=== PATIENT | female | born 1985 | race African-American/Black ===

== ENCOUNTER 2024-11-01 10:27 | Emergency (ER) | payer OTHER, SELFPAY ==
[2024-11-01 10:32] VITALS: BP 100/56; BP 96/58; PULSE 83; PULSE 86; RESP 16; TEMP 36.7; O2SAT 98; O2SAT 99; BMI 36.4
[2024-11-01 10:42] VITALS: O2SAT 99
--- NOTE | 2024-11-01 10:58 | ECG_ITS ---
Test Reason : SYNCOPE Blood Pressure : */* mmHG Vent. Rate : 73 BPM Atrial Rate : 73 BPM P-R Int : 162 ms QRS Dur : 80 ms QT Int : 376 ms P-R-T Axes : 58 22 22 degrees QTcB Int : 414 ms Normal sinus rhythm Normal ECG No previous ECGs available Referred By: Kierra Garces Electronically Signed By: ISRA JORGE
--- OUTSIDE RECORDS SUMMARY | 2024-11-01 11:06 | XMS_ITS | Continuity of Care Document ---
Author Name [facility] Organization [facility] Care Team Providers Care Supervisor Filter Assembly Name Role Phone [facility] Unavailable Unavailable Problems Combined list of problems from Department of [facility] and [facility] facilities. It does not include entries that were removed or entered in error. Problem Status Onset Date Problem Type Date of Resolution Comments Source No Known Problems Active Condition 0105A-[facility] Jerica-Wesley son Medications Combined list of outpatient medications from Department of [facility] and [facility] facilities.Medications provided include 1) outpatient medications from the last 15 months, and 2) patient-reported medications. 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 FITTER, Pharmacy : [facility] Oral (given by mouth) Complet ed 03/21/2024 4 2023 30.0 0105A-A [facility] Chericrie f-Wesleys on ibuprofen 800 mg oral tablet 1 tab(s), Oral, every 8 hr, with food or milk not to exceed 3200 mg/day, # 30 tab(s), 1 total refill(s ), Acute, 12/20/23 11:00:00 PM CDT, Pharmacy : [facility] Oral (given by mouth) Complet ed 12/21/2023 4 2023 30.0 0105A-A VICKY Montes De Ocae lachelle-Wesleys on loratadine 10 mg oral tablet 1 tab(s), Oral, Daily, PRN allergy symptoms , # 90 tab(s), 3 total refill(s ), Melina fajardo, Pharmacy : [facility] Oral (given by mouth) Ordered 09/26/2024 4 2023 90.0 0105A-A VICKY larose-Wesleys on Tylenol 325 mg oral tablet 1 tab(s), Oral, every 4 hr, PRN pain or fever, # 30 tab(s), 1 total refill(s ), Acute, 12/20/23 11:00:00 PM CDT, Pharmacy : [facility] Oral (given by mouth) Complet ed 12/21/2023 4 2023 30.0 0105A-A VICKY larose-Wesleys on Immunizations Combined list of available immunizations from the Department of Defense and Veterans Affairs facilities. Immunization Series Date Given Administered By Site Reaction Lot Number CVX Code Drug Absence Management Consultant Status Comments Source tetanus, diphtheria, acellular pertu is 2023 SAUNDRA Choi bryn, right (delt oid) [id number] GlaxoSmithKli ne complet ed tetanus, diphtheri a, acellular pertussis 08/09/23 Given 0105A-A VICKY larose-Wesleys on poliovirus vaccine, inactivated 2023 SAUNDRA Choi bryn, right (delt oid) [id number] sanofi pasteur complet ed polioviru s vaccine, inactivat ed 08/09/23 Given 0105A-A [facility] Twila f-Jacks on meningococcal conjugate vaccine 2023 SAUNDRA Choi bryn, left (delt oid) [id number] GlaxoSmithKli ne complet ed meningoco ccal conjugate vaccine 08/09/23 Given 0105A-A [facility] Twila larose-Jacks on measles/mumps /rubella virus vaccine 2023 SAUNDRA Rogers Arm [id number] GlaxoSmithKli ne complet ed measles/m umps/rube lla virus vaccine 08/09/23 Given 0105A-A [facility] Moncrie f-Jacks on adenovirus vaccine, live 2023 SAUNDRA [id number] Notcha [employer] [facility] complet ed adenoviru s vaccine, live 08/09/23 Given 0105A-A [facility] Moncrie f-Jacks on Results Combined list of recent chemistry, hematology and other laboratory results from Department of Defense and [facility], ranging from 15 months to all on record, depending upon the facility. Order Name Results Value Reference Range Date Interpretation Specimen Comments Source Molecular Infectiou s Disease Reason for Test? Screenin g *NA* (09/27/23 6:43 AM) 09/26 0105A-A [facility] Moncrie f-Jacks on Molecular Infectiou s Disease SARS-CoV-2 ANTIGEN Negative *NA* (09/27/23 6:43 AM) 09/26 0105A-A [facility] Moncrie f-Jacks on Molecular Infectiou s Disease Reason for Test? Screenin g *NA* (09/27/23 6:40 AM) 09/26 0105A-A [facility] Moncrie f-Jacks on Molecular Infectiou s Disease SARS-CoV-2 ANTIGEN Negative *NA* (09/27/23 6:40 AM) 09/26 0105A-A [facility] Moncrie f-Jacks on Infectiou s Disease Strep A, Rapid negative 09/08 0105A-A [facility] Moncrie f-Jacks on Chemistry CK Total 180 U/L 20 - 184 09/08 N 0105A-A [facility] Moncrie f-Jacks on Chemistry CO2 29 mmol/L 18 - 33 09/08 N 0105A-A [facility] Moncrie f-Jacks on Chemistry Glucose Lvl 92 mg/dL 70 - 100 09/08 N 0105A-A [facility] Moncrie f-Jacks on Chemistry Potassium Lvl 4.0 mmol/L 3.5 - 5.4 09/08 N 0105A-A [facility] Moncrie f-Jacks on Chemistry Chloride 104.0 mmol/L 98.0 - 108.0 09/08 N 0105A-A [facility] Moncrie f-Jacks on Chemistry Sodium 137.0 mmol/L 135.0 - 145.0 09/08 N 0105A-A [facility] Moncrie f-Jacks on Chemistry Creatinine Level 0.9 mg/dL 0.6 - 1.2 09/08 N 0105A-A [facility] Moncrie f-Jacks on Chemistry BUN 10 mg/dL 4 - 22 09/08 N 0105A-A [facility] Moncrie f-Jacks on Urinalysi s UA Blood Negative (09/09/23 7:13 AM) 09/08 N 0105A-A [facility] Moncrie f-Jacks on Urinalysi s UA Bili Negative 09/08 0105A-A [facility] Moncrie f-Jacks on Urinalysi s UA Clarity Clear *NA* (09/09/23 7:13 AM) 09/08 0105A-A [facility] Moncrie f-Jacks on Urinalysi s UA Micro Ind? Not Indicate d (09/09/23 7:13 AM) 09/08 N 0105A-A [facility] Moncrie f-Jacks on Urinalysi s UA Leuk Esterase Negative 09/08 0105A-A [facility] Moncrie f-Jacks on Urinalysi s UA pH 7.0 pH 09/08 N 0105A-A [facility] Moncrie f-Jacks on Urinalysi s UA Nitrite Negative (09/09/23 7:13 AM) 09/08 N 0105A-A [facility] Moncrie f-Jacks on Urinalysi s UA Glucose Negative 09/08 0105A-A [facility] Moncrie f-Jacks on Urinalysi s UA Color Light yellow 09/08 0105A-A [facility] Moncrie f-Jacks on Urinalysi s UA Ketones Negative 09/08 0105A-A [facility] Moncrie f-Jacks on Urinalysi s UA Urobilinoge n 0.2 (09/09/23 7:13 AM) 09/08 N 0105A-A [facility] Moncrie f-Jacks on Urinalysi s UA Spec [place] 1.010 (09/09/23 7:13 AM) 09/08 N 0105A-A [facility] Moncrie f-Jacks on Urinalysi s UA Protein Negative 09/08 0105A-A [facility] Moncrie f-Jacks on Chemistry Creatinine Level 0.9 mg/dL 0.6 - 1.2 09/08 N 0105A-A [facility] Moncrie f-Jacks on Chemistry Globulin 3.4 g/dL 2.8 - 3.1 09/08 H 0105A-A [facility] Moncrie f-Jacks on Chemistry BUN/Creat Ratio 11 09/08 0105A-A [facility] Moncrie f-Jacks on Chemistry A/G Ratio 1.1 0.9 - 1.8 09/08 N 0105A-A [facility] Moncrie f-Jacks on Chemistry Protein Total 7.1 g/dL 6.4 - 8.1 09/08 N 0105A-A [facility] Moncrie f-Jacks on Chemistry AGAP 8 mmol/L 4 - 12 09/08 N 0105A-A [facility] Moncrie f-Jacks on Chemistry Potassium Lvl 4.0 mmol/L 3.5 - 5.4 09/08 N 0105A-A [facility] Moncrie f-Jacks on Chemistry Sodium 137.0 mmol/L 135.0 - 145.0 09/08 N 0105A-A HC Moncrie f-Jacks on Chemistry CO2 29 mmol/L 18 - 33 09/08 N 0105A-A [facility] Moncrie f-Jacks on Chemistry Glucose Lvl 92 mg/dL 70 - 100 09/08 N 0105A-A [facility] Moncrie f-Jacks on Chemistry ALT 25 U/L 10 - 47 09/08 N 0105A-A [facility] Moncrie f-Jacks on Chemistry AST 22 U/L 11 - 38 09/08 N 0105A-A [facility] Moncrie f-Jacks on Chemistry Albumin 3.7 g/dL 3.3 - 5.5 09/08 N 0105A-A [facility] Moncrie f-Jacks on Chemistry Alk Phos 70 U/L 42 - 141 09/08 N 0105A-A [facility] Moncrie f-Jacks on Chemistry Bilirubin Total 1.1 mg/dL 0.2 - 1.6 09/08 N 0105A-A VICKY Butcher on Chemistry BUN 10 mg/dL 4 - 22 09/08 N 0105A-A VICKY Butcher on Chemistry Calcium 10.5 mg/dL 8.0 - 10.3 09/08 H 0105A-A VICKY Butcher on Chemistry eGFR CKD EPI 86 09/08 Interpretiv e Data: Estimated Glomerular Filtration Rate (eGFR) calculated using the 2020 Chronic Kidney Disease-Epi demiology (CKD-EPI) Collaborati on creatinine equation; units of measure are mL/min/1.73 m2. Results are only valid for adults ( 18 years) whose serum creatinine is in steady state. eGFR calculation s are not valid for patients with acute kidney injury and for patients on dialysis. C reatinine-b ased estimates of kidney function may also be inaccurate in patients with reduced creatinine generation due to decreased muscle mass (e.g., malnutritio n, severe hypoalbumin emia, sarcopenia, chronic neuromuscul ar disease, amputations , severe heart failure or liver disease) and in patients with increased creatinine generation due to increased muscle mass (e.g., muscle builders, anabolic steroids) or increased dietary intake. As drug clearance is proportiona l to total GFR and not GFR indexed to body surface area (BSA), in individuals with a BSA substantial ly different than 1.73 m2, drug dosing should be based the reported eGFRvalue de-indexed from BSA by multiplying by the individual s BSA and dividing by 1.73. CKD is diagnosed based on abnormaliti es of kidney structure or function, present for >3 months, with implication s for health and disease. CKD is classified and staged based on cause, eGFR and albuminuria (quantified as urine albumin to creatinine ratio). An eGFR >60 mL/min/1.73 m2 in the absence of increased urine albumin excretion or structural abnormaliti es does not represent CKD.eGFR (mL/min/1.7 3 m2) CKD stage Interpretat ion 90 G1 Normal 60-89 G2 Mild decrease 45-59 G3A Mild to moderate decrease 30-44 G3B Moderate to severe decrease 15-29 G4 Severe decrease <15 G5 Kidney failure 0105A-A VICKY Butcher on Chemistry eGFR CKD EPI 116 08/28 Interpretiv e Data: Estimated Glomerular Filtration Rate (eGFR) calculated using the 2020 Chronic Kidney Disease-Epi demiology (CKD-EPI) Collaborati on creatinine equation; units of measure are mL/min/1.73 m2. Results are only valid for adults ( 18 years) whose serum creatinine is in steady state. eGFR calculation s are not valid for patients with acute kidney injury and for patients on dialysis. C reatinine-b ased estimates of kidney function may also be inaccurate in patients with reduced creatinine generation due to decreased muscle mass (e.g., malnutritio n, severe hypoalbumin emia, sarcopenia, chronic neuromuscul ar disease, amputations , severe heart failure or liver disease) and in patients with increased creatinine generation due to increased muscle mass (e.g., muscle builders, anabolic steroids) or increased dietary intake. As drug clearance is proportiona l to total GFR and not GFR indexed to body surface area (BSA), in individuals with a BSA substantial ly different than 1.73 m2, drug dosing should be based the reported eGFRvalue de-indexed from BSA by multiplying by the individual s BSA and dividing by 1.73. CKD is diagnosed based on abnormaliti es of kidney structure or function, present for >3 months, with implication s for health and disease. CKD is classified and staged based on cause, eGFR and albuminuria (quantified as urine albumin to creatinine ratio). An eGFR >60 mL/min/1.73 m2 in the absence of increased urine albumin excretion or structural abnormaliti es does not represent CKD.eGFR (mL/min/1.7 3 m2) CKD stage Interpretat ion 90 G1 Normal 60-89 G2 Mild decrease 45-59 G3A Mild to moderate decrease 30-44 G3B Moderate to severe decrease 15-29 G4 Severe decrease <15 G5 Kidney failure 0105A-A HC Tavone lachelle-Wesleys on Chemistry Sodium 138.0 mmol/L 135.0 - 145.0 08/28 N 0105A-A HC Tavone lachelle-Jacks on Chemistry Potassium Lvl 4.3 mmol/L 3.5 - 5.4 08/28 N 0105A-A HC Tavone lachelle-Wesleys on Chemistry Glucose Lvl 94 mg/dL 70 - 100 08/28 N 0105A-A HC Moncrie f-Jacks on Chemistry CO2 26 mmol/L 18 - 33 08/28 N 0105A-A HC Moncrie f-Jacks on Chemistry CK Total 887 U/L 20 - 184 08/28 H 0105A-A HC Moncrie f-Jacks on Chemistry Chloride 105.0 mmol/L 98.0 - 108.0 08/28 N 0105A-A HC Moncrie f-Jacks on Chemistry BUN 9 mg/dL 4 - 22 08/28 N 0105A-A HC Moncrie f-Jacks on Chemistry Creatinine Level 0.7 mg/dL 0.6 - 1.2 08/28 N 0105A-A HC Moncrie f-Jacks on Urinalysi s UA Urobilinoge n 0.2 (08/29/23 7:57 AM) 08/28 N 0105A-A HC Moncrie f-Jacks on Urinalysi s UA Spec [place] <=1.005 *ABN* (08/29/23 7:57 AM) 08/28 A 0105A-A [facility] Moncrie f-Jacks on Urinalysi s UA Nitrite Negative (08/29/23 7:57 AM) 08/28 N 0105A-A [facility] Moncrie f-Jacks on Urinalysi s UA Leuk Esterase Negative 08/28 0105A-A [facility] Moncrie f-Jacks on Urinalysi s UA Ketones Negative 08/28 0105A-A [facility] Moncrie f-Jacks on Urinalysi s UA Protein Negative 08/28 0105A-A HC Moncrie f-Jacks on Urinalysi s UA pH 6.0 pH 08/28 N 0105A-A HC Moncrie f-Jacks on Urinalysi s UA Blood Negative (08/29/23 7:57 AM) 08/28 N 0105A-A [facility] Moncrie f-Jacks on Urinalysi s UA Bili Negative 08/28 0105A-A [facility] Moncrie f-Jacks on Urinalysi s UA Micro Ind? Not Indicate d (08/29/23 7:57 AM) 08/28 N 0105A-A [facility] Moncrie f-Jacks on Urinalysi s UA Clarity Clear *NA* (08/29/23 7:57 AM) 08/28 0105A-A [facility] Moncrie f-Jacks on Urinalysi s UA Glucose Negative 08/28 0105A-A [facility] Moncrie f-Jacks on Urinalysi s UA Color Light yellow 08/28 0105A-A HC Moncrie f-Jacks on Hematolog y Hemoglobin 12.8 g/dL 12.5 - 15.0 08/27 N 0105A-A HC Moncrie f-Jacks on Hematolog y MCH 27.1 pg 33.0 - 39.0 08/27 L 0105A-A [facility] Moncrie f-Jacks on Hematolog y MCHC 32.0 g/dL 31.5 - 36.0 08/27 N 0105A-A HC Moncrie f-Jacks on Hematolog y RDW SD 43.4 08/27 0105A-A [facility] Moncrie f-Jacks on Hematolog y RDW CV 13.8 % 11.5 - 14.5 08/27 N 0105A-A HC Moncrie f-Jacks on Hematolog y MCV 84.60 fL 78.00 - 100.00 08/27 N 0105A-A HC Moncrie f-Jacks on Hematolog y MPV 10.7 fL 9.0 - 13.0 08/27 N 0105A-A HC Moncrie f-Jacks on Hematolog y Platelets 251 10^3/uL 150 - [id number] 08/27 N 0105A-A HC Moncrie f-Jacks on Hematolog y RBC 4.73 10^6/uL 4.00 - 5.09146 08/27 N 0105A-A HC Moncrie f-Jacks on Hematolog y WBC 9.48 10^3/uL 4.50 - 10.36949 08/27 N 0105A-A HC Moncrie f-Jacks on Hematolog y Hematocrit 40.0 % 37.0 - 47.0 08/27 N 0105A-A HC Moncrie f-Jacks on Urinalysi s UA Spec [place] <=1.005 *ABN* (08/28/23 1:12 PM) 08/27 A 0105A-A HC Moncrie f-Jacks on Urinalysi s UA Urobilinoge n 0.2 (08/28/23 1:12 PM) 08/27 N 0105A-A HC Moncrie f-Jacks on Urinalysi s UA pH 5.5 pH 08/27 N 0105A-A HC Moncrie f-Jacks on Urinalysi s UA Protein Negative 08/27 0105A-A HC Moncrie f-Jacks on Urinalysi s UA Leuk Esterase Negative 08/27 0105A-A HC Moncrie f-Jacks on Urinalysi s UA Glucose Negative 08/27 0105A-A HC Moncrie f-Jacks on Urinalysi s UA Ketones Negative 08/27 0105A-A HC Moncrie f-Jacks on Urinalysi s UA Nitrite Negative (08/28/23 1:12 PM) 08/27 N 0105A-A HC Moncrie f-Jacks on Urinalysi s UA Bili Negative 08/27 0105A-A HC Moncrie f-Jacks on Urinalysi s UA Blood Negative (08/28/23 1:12 PM) 08/27 N 0105A-A HC Moncrie f-Jacks on Urinalysi s UA Clarity Clear *NA* (08/28/23 1:12 PM) 08/27 0105A-A HC Moncrie f-Jacks on Urinalysi s UA Micro Ind? Not Indicate d (08/28/23 1:12 PM) 08/27 N 0105A-A HC Moncrie f-Jacks on Urinalysi s UA Color Light yellow 08/27 0105A-A HC Moncrie f-Jacks on Hematolog y Eosinophil % Auto 0.7 % 0.0 - 3.0 08/27 N 0105A-A HC Moncrie f-Jacks on Hematolog y Neutrophil % Auto 74.5 % 50.0 - 80.0 08/27 N 0105A-A HC Moncrie f-Jacks on Hematolog y Basophil % Auto 0.4 % 0.0 - 3.0 08/27 N 0105A-A HC Moncrie f-Jacks on Hematolog y Monocyte % Auto 6.6 % 0.0 - 11.0 08/27 N 0105A-A HC Moncrie f-Jacks on Hematolog y Lymphocyte % Auto 17.7 % 20.0 - 50.0 08/27 L 0105A-A HC Moncrie f-Jacks on Hematolog y Lymph Absolute 1.68 10^6/uL 1.50 - 3.29796 08/27 N 0105A-A HC Moncrie f-Jacks on Hematolog y Imm. Granulocyte % 0.1 0.0 - 1.0 08/27 N 0105A-A HC Moncrie f-Jacks on Hematolog y Imm. Granulocyte Absolute 0.01 0.00 - 0.08 08/27 N 0105A-A HC Moncrie f-Jacks on Hematolog y Eos Absolute 0.07 10^6/uL 0.00 - 0.04051 08/27 N 0105A-A HC Moncrie f-Jacks on Hematolog y Neutro Absolute 7.05 10^6/uL 1.50 - 6.54586 08/27 H 0105A-A HC Moncrie f-Jacks on Hematolog y Baso Absolute 0.04 10^6/uL 0.00 - 0.14695 08/27 N 0105A-A HC Moncrie f-Jacks on Hematolog y [place] Absolute 0.63 10^6/uL 0.00 - 1.58611 08/27 N 0105A-A HC Moncrie f-Jacks on Chemistry Chloride 101.0 mmol/L 98.0 - 108.0 08/27 N 0105A-A HC Moncrie f-Jacks on Chemistry BUN 12 mg/dL 4 - 22 08/27 N 0105A-A HC Moncrie f-Jacks on Chemistry CK Total 566 U/L 20 - 184 05/08 /2024 H 0105A-A VICKY Butcher on Chemistry Creatinine Level 1.0 mg/dL 0.6 - 1.2 08/27 N 0105A-A VICKY Butcher on Chemistry Sodium 135.0 mmol/L 135.0 - 145.0 08/27 N 0105A-A VICKY Butcher on Chemistry CO2 26 mmol/L 18 - 33 08/27 N 0105A-A VICKY Butcher on Chemistry Potassium Lvl 3.8 mmol/L 3.5 - 5.4 08/27 N 0105A-A VICKY Butcher on Chemistry Glucose Lvl 92 mg/dL 70 - 100 08/27 N 0105A-A VICKY Butcher on Chemistry eGFR CKD EPI 75 08/27 Interpretiv e Data: Estimated Glomerular Filtration Rate (eGFR) calculated using the 2020 Chronic Kidney Disease-Epi demiology (CKD-EPI) Collaborati on creatinine equation; units of measure are mL/min/1.73 m2. Results are only valid for adults ( 18 years) whose serum creatinine is in steady state. eGFR calculation s are not valid for patients with acute kidney injury and for patients on dialysis. C reatinine-b ased estimates of kidney function may also be inaccurate in patients with reduced creatinine generation due to decreased muscle mass (e.g., malnutritio n, severe hypoalbumin emia, sarcopenia, chronic neuromuscul ar disease, amputations , severe heart failure or liver disease) and in patients with increased creatinine generation due to increased muscle mass (e.g., muscle builders, anabolic steroids) or increased dietary intake. As drug clearance is proportiona l to total GFR and not GFR indexed to body surface area (BSA), in individuals with a BSA substantial ly different than 1.73 m2, drug dosing should be based the reported eGFRvalue de-indexed from BSA by multiplying by the individual s BSA and dividing by 1.73. CKD is diagnosed based on abnormaliti es of kidney structure or function, present for >3 months, with implication s for health and disease. CKD is classified and staged based on cause, eGFR and albuminuria (quantified as urine albumin to creatinine ratio). An eGFR >60 mL/min/1.73 m2 in the absence of increased urine albumin excretion or structural abnormaliti es does not represent CKD.eGFR (mL/min/1.7 3 m2) CKD stage Interpretat ion 90 G1 Normal 60-89 G2 Mild decrease 45-59 G3A Mild to moderate decrease 30-44 G3B Moderate to severe decrease 15-29 G4 Severe decrease <15 G5 Kidney failure 0105A-A VICKY Butcher on Infectiou s Disease Rubeola IgG Antibody Equivoca l 13 *NA* (08/07/23 9:14 AM) 08/06 Interpretiv e Data: NEGATIVE = Not Immune 0105A-A VICKY Butcher on Infectiou s Disease Mumps IgG Antibody Immune 14 *NA* (08/07/23 9:14 AM) 08/06 Interpretiv e Data: NEGATIVE = Not Immune 0105A-A VICKY Butcher on Infectiou s Disease Rubella IgG Antibody Immune 15 *NA* (08/07/23 9:14 AM) 08/06 Interpretiv e Data: NEGATIVE = Not Immune 0105A-A VICKY Butcher on Infectiou s Disease VZV IgG Scrn Immune 4 *NA* (08/07/23 9:14 AM) 08/06 Interpretiv e Data: NEGATIVE = Not Immune 0105A-A VICKY Butcher on Blood Bank ABO/Rh Type AB POS 08/06 0105A-A VICKY Butcher on Hematolog y Hemoglobin (Hgb) Solubility LC Negative 08/06 Result Comment: Performed At: [address] [place] [address] [id number] Ulysses Durand MD Ph:[phone] 0105A-A VICKY Butcher on Immunolog y/Serolog y Hep A IgG 10.56 s/corati o 08/06 Interpretiv e Data: Negative (Not Immune): 0.00-0.99 S/CO RATIO Positive (Immune): >=1.00 S/CO RATIO 0105A-A VICKY Butcher on Immunolog y/Serolog y Hep B Surface Ab 584.32 m[iU]/mL 08/06 Interpretiv e Data: Negative (Not Immune): <8.0 mIU/mL (IU/L) Equivocal: >= 8.00 - <12.00 mIU/mL (IU/L) Positive (Immune): >= 12.00 mIU/mL (IU/L) Vishnu Butcher on Infectiou s Disease HIV-1/2 AG/AB 4G CDD LC NEGATIVE 08/06 Result Comment: Performed At: [address] [place] [address] FOR DISEASE DETECTION [id number] [place] [address] [address] [place] [address] JOSE LUIS DINERO PHD Ph:[phone] 63 010Clark-A VICKY Butcher on Infectiou s Disease Source of Test.LC Phys Exam (08/07/23 9:14 AM) 08/06 N Vishnu Butcher on Chemistry G6PD Calc TNP 7.50 - 16.20 08/06 Result Comment: Not performed when G6PD U/L is 800 U/L or greater. 010Clark-Junior Butcher on Chemistry G6PD 1262 U/L 800 - 1660 08/06 N Interpretiv e Data: Normal 800 U/L and greater Intermediat e 500-799 U/L Deficient <500 UL 010Clark-Junior Butcher on Chemistry Hemoglobin A1c 4.9 % 08/06 N Interpretiv e Data: The following HbA1C ranges may be used for interpretat ion of results; however, factors such as: duration of diabetes adherence to therapy and age of the patient should also be considered when assessing the degree of blood glucose control. Normal = less than 5.7% Prediabetes = 5.7 - 6.4% Diabetes = 6.5% or higher Iman-Junior Butcher on Chemistry eAvg Glucose 93.9 mg/dL 08/06 N Interpretiv e Data: Estimated average glucose (eAG) is an estimated average of the blood glucose levels over a period of 2-3 months.The estimation is based on the A1C blood test result. Iman-Junior Butcher on Chemistry Beta hCG Qnt <2.42 m[iU]/mL 2.42 - 5.00 08/06 N Interpretiv e Data: Reference Range: < 2.42 5.0 mIU/mL = Negative 5.0 25.0 mIU/mL = May be indicative of early . Repeat in 24 48 hours. >25.0 mIU/mL = Positive Note: Recruit screening for immunizatio ns should be considered for repeat analysis within 24 ? 48 hours for values between 3.0 5.0 mIU/mL. If the hCG level is inconsisten t with, or unsupported by clinical evidence results should be confirmed by an alternate hCG method. This may include the qualitative testing or urine. The absence of urinary hCG with a positive serum/plasm a result may suggest a false elevation of the serum/plasm a result. Infrequentl y, hCG levels may appear consistentl y elevated and could be due to, but not limited to, the presence of the following: heterophili c antibodies, nonspecific protein binding, hCG like substance, trophoblast ic or nontrophobl astic neoplasms. For further guidance in the event of an unexpected result, please contact the [facility] [place] Department of Pathology Core Laboratory Section. This method is not suitable for use in testing males for B-hCG. 0105A-A Twila laroseAbdullahiBon on Chemistry POC U HCG Negative ( 3 8:47 AM) 01/30 N [id number] dagmar cha [facility] Vital Signs Combined list of inpatient and outpatient Vital Signs from Department of Defense and Veterans Affairs, ranging from 12 months to all on record, depending upon the facility. Vital Sign Value Date Comments Source Systolic Blood Pressure 112 mm[Hg] 08/28/2023 18:42:[address] [place] [address] Diastolic Blood Pressure 69 mm[Hg] 08/28/2023 18:42:[address] [place] [address] Temperature Oral 36.8 Ivett 08/28/2023 18:42:[address] [place] [address] Respiratory Rate 16 br/min 08/28/2023 18:42:[address] [place] [address] Peripheral Pulse Rate 78 bpm 08/28/2023 18:42:[address] [place] [address] Systolic Blood Pressure 112 mm[Hg] 09/27/2023 10:26:00 010SYEDA Pizano-Blaise Diastolic Blood Pressure 64 mm[Hg] 09/27/2023 10:26:00 DEANDRA Pizano-Blaise Respiratory Rate 16 br/min 09/27/2023 10:26:00 DEANDRA Pizano-Blaise Peripheral Pulse Rate 62 bpm 09/27/2023 10:26:00 DEANDRA Pizano-Blaise Mean Arterial Pressure, Calc 80 mm[Hg] 09/27/2023 10:26:00 DEANDRA Pizano-Blaise Blood Pressure Manual Automatic 09/27/2023 10:26:00 010Clark-[facility] Jerica-Blaise BP Site Left arm 09/27/2023 10:26:00 [facility] Jerica-Blaise Temperature Oral 36.9 Ivett 09/27/2023 10:26:00 DEANDRA Pizano-Blaise Temperature Oral 36.7 Ivett 09/09/2023 09:53:00 HAYLEE Samy BP Site Left arm 09/09/2023 09:53:00 Iman Pablo Blood Pressure Manual Automatic 09/09/2023 09:53:00 010SYEDA Pizano-Blaise Systolic Blood Pressure 109 mm[Hg] 09/09/2023 09:53:00 DEANDRA Pizano-Blaise Diastolic Blood Pressure 66 mm[Hg] 09/09/2023 09:53:00 HAYLEE Samy Mean Arterial Pressure, Calc 80 mm[Hg] 09/09/2023 09:53:00 DEANDRA Pizano-Blaise Peripheral Pulse Rate 66 bpm 09/09/2023 09:53:00 DEANDRA Pizano-Blaise Respiratory Rate 16 br/min 09/09/2023 09:53:00 010CHANDRIKA Jerica-Blaise Systolic Blood Pressure Supine 113 mm[Hg] 08/28/2023 15:42:00 010CHANDRIKA Jerica-Blaise Diastolic Blood Pressure Supine 73 mm[Hg] 08/28/2023 15:42:00 [facility] Jerica-Blaise Temperature Oral 36.5 Ivett 08/28/2023 15:42:00 KristelChelo Pizano-Blaise Systolic Blood Pressure 123 mm[Hg] 08/28/2023 15:42:00 010Clark-Chelo Pizano-Blaise Diastolic Blood Pressure 67 mm[Hg] 08/28/2023 15:42:00 010Clark-BIANCA Pizano-Blaise Systolic Blood Pressure Standing 117 mm[Hg] 08/28/2023 15:42:00 010Clark-MARLEY Jerica-Blaise Diastolic Blood Pressure Standing 79 mm[Hg] 08/28/2023 15:42:00 KristelChelo Pizano-Blaise Peripheral Pulse Rate 77 bpm 08/28/2023 15:42:00 [facility]Blaise Mean Arterial Pressure, Calc 86 mm[Hg] 08/28/2023 15:42:00 DEANDRA Pizano-Blaise Respiratory Rate 17 br/min 08/28/2023 15:42:00 HAYLEE Jerica-Blaise Peripheral Pulse Rate 80 bpm 01/30/2023 11:06:[address] [place] [address] MEPS Systolic Blood Pressure 123 mm[Hg] 01/30/2023 11:06:[address] [place] [address] MEPS Diastolic Blood Pressure 76 mm[Hg] 01/30/2023 11:06:[address] [place] [address] MEPS Mean Arterial Pressure, Calc 83 mm[Hg] 08/29/2023 10:28:00 DEANDRA Pizano-Blaise Peripheral Pulse Rate 63 bpm 08/29/2023 10:28:00 [facility] Jerica-Blaise Systolic Blood Pressure 112 mm[Hg] 08/29/2023 10:28:00 [facility] Jerica-Blaise Diastolic Blood Pressure 68 mm[Hg] 08/29/2023 10:28:00 [facility]man[facility] Jerica-Blaise Temperature Oral 36.8 Ivett 08/29/2023 10:28:00 [facility]ica-Blaise Respiratory Rate 18 br/min 08/29/2023 10:28:00 [facility]man[facility] Jerica-Blaise Encounters Combined list of: 1) Encounters from [facility] Affairs facilities going backup to the last 18 months, not all VA inpatient encounters are included; 2) Encounters from the Department of Defense facilities going backup to 280 months. Location Location Details Encounter Type Encounter Number Reason For Visit Attending Provider ADM Date DC Date Status Disposition Source [address] [place] [address] [facility] [id number] SAMUEL QUINONEZ 11/25 Discharge Disposition: Home or Self Care 0122C-A Deann Procedures Combined list of: 1) Procedures from [facility] of Veterans Affairs facilities going back up to thelast 18 months, not all [place] non-surgical procedures are included; 2) All procedures from the Department of [facility] facilities. Procedure Procedure Type Code Date Perfomer Comments Sourc e No data available for this section Ambulatory P harmacy Social History Combined list of available smoking, tobacco, and other social history from Department of [facility] and [facility] facilities. Social History Type Response Date Comment Sourc e Tobacco Cigarette use: Never -cigarette user. Other Tobacco use: Never-other tobacco user (not cigarettes). Ambulatory Pharmacy Sexual Orientation Ambula tory Pharmacy Gender identity Ambulator y Pharmacy Sex Representation Female (finding) Unknown Organization Assessment and Plan Combined list of future care activities from Department of [facility] and [facility] facilities (e.g., assessment and plan notes, appointments, orders, and referrals). Additional future care activities may be listed in the Plan of Care section. Result Assessment and Plan Date Source Assessment and Plan Extracted from:Title : Education Note Author: SIENA BERGER Date: 01/30/23 Diagnostic Tests PendingDNA Repository Sample DVRDNA [id number] 08/07/23 11/01/[address] [place] [address] Functional Status Combined list of recent functional and cognitive assessments recorded at [facility] of Defense and [facility] ([place] Functional [place] Measurement (FIM) Scale: 1 = Total Assistance (Subject = 0% +), 2 = Maximal Assistance (Subject = 25% +), 3 = Moderate Assistance (Subject = 50% +), 4 = Minimal Assistance (Subject = 75% +), 5 = Supervision, 6 = Modified [place] (Device), 7 = Complete [place] (Timely, Safely). Assessment Date/Time Source Assessment Type Assessment Skill Assessment Score Assessment Details No data available for this section
--- OUTSIDE RECORDS SUMMARY | 2024-11-01 11:07 | XMS_ITS | Clinical Summary ---
Author Organization [facility] Address [address] [place] [address] Phone Care Team Providers Care Goat Farmer Name Role Phone Physician, No Pcp Primary Care Provider Unavaila ble Allergies No known active allergies Medications No known medications Active Problems Problem Noted Date Diagnosed Date Delivery by elective section 05/15/2018 Encounters Date Type Department Care Team Description 09/22/2024 10:30 AM EDT Office Visit [facility] (Residency Program) [address] [place] [address] Shahbaz Pena DMD from Last 3 Months Surgical History Surgery Date Site/Laterality Comments APPENDECTOMY PROCEDURE:APPENDECTOMY SECTION 05/15/2018 N/A PROCEDURE: SECTION;COMMENT:Procedure: OB SECTION; Surgeon: Gladis Elena DO; Location: [facility] DELIVERY ROOM; Service: Obstetrics; Laterality: N/A; BREAST MASS EXCISION Right 2012/ cyst removed Medical History Medical History Date Comments PCOS (polycystic ovarian syndrome) DX:PCOS (polycystic ovarian syndrome) Kidney stone DX:Kidney stone Family History Medical History Relation Name Comments Breast cancer Mother Second breast cancer at 72 Breast cancer Mother's Sister Relation Name Status Comments Mother Mother's Sister Social History Tobacco Use Types Packs/Day Years Used Date Smoking Tobacco: Never Smokeless Tobacco: Never Alcohol Use Standard Drinks/Week Comments No 0 (1 standard drink = 0.6 oz pur e alcohol) Comments Unknown Sex and Gender Information Value Date Recorded Sex Assigned at Female 06/10/2024 2:10 PM EST Legal Sex Female 12:46 PM EST Gender Identity Female 06/10/2024 2:10 PM EST Sexual Orientation Straight 06/10/2024 2: 10 PM EST Obstetrics History Para Term AB IAB SAB Ectopic Multiple Livin g Live Births 1 Last Filed Vital Signs Vital Sign Reading Time Taken Comments Blood Pressure 104/63 06/16/2024 1:07 PM EST Pulse 84 06/16/2024 1:07 PM EST Temperature 37.2 C (99 F) 06/16/2024 1:07 PM EST Respiratory Rate - - Oxygen Saturation 100% 06/16/2024 1:07 PM EST Inhaled Oxygen Concentration - - Weight 102 kg (225 lb) 06/16/2024 1:07 PM EST Height 170.2 cm (5' 7 ) 06/16/2024 1:07 PM EST Body Mass Index 35.24 06/16/2024 1:07 PM EST Plan of Treatment Upcoming Encounters Date Type Department Care Team (Late st Contact Info) Description 01/14/2025 10:00 AM EDT Appointment [facility] MRI [address] [place] [phone] 01/21/2025 10:30 AM EDT Office Visit [facility] Breast Health Consult [address] [place] [phone] Toña Beth MD [address] [place] [id number] Health Maintenance Due Date Last Done Comments Dental Oral Exam 1987 Hepatitis B Vaccines (1 of 3 - 19+ 3-dose series) 10/10/2006 Depression Screening 03/20/2022 HIV Screening 03/20/2022 Hepatitis C Screening 03/20/2022 Social Influencers of Health Screening 03/20/2022 IPV Vaccines (2 of 3 - Adult catch-up series) 09/06/2023 08/09/2023 COVID-19 Vaccine (1 - 2023-2 5 season) 2023 Dental Prophylaxis 09/22/2024 Dental X-Ray: Bitewings 09/22/2024 Dental X-Ray: Full Mouth 09/22/2024 Influenza Vaccine (#1) 2024 Cervical Cancer Screening: P ap Smear 06/03/2027 06/03/2024, 03/23/2016 DTaP,Tdap,and Td Vaccines (2 - Td or Tdap) 08/08/2033 08/09/2023 MMR Vaccines Aged Out 08/09/2023 No longer eligi ble based on patient's age to complete this topic Meningococcal ACWY Vaccine Aged Out 08/09/2023 N o longer eligible based on patient's age to complete this topic HIB Vaccines Aged Out No longer eligi ble based on patient's age to complete this topic HPV Vaccines Aged Out No longer eligi ble based on patient's age to complete this topic Hepatitis A Vaccines Aged Out No long er eligible based on patient's age to complete this topic Meningococcal B Vaccine Aged Out No l onger eligible based on patient's age to complete this topic Pneumococcal Vaccine: Pediatrics (0 to 5 Years) and At-Risk Patients (6 to 49 Years) Aged Out No longer eligible b ased on patient's age to complete this topic RSV Immunization Patients Under 20 months Aged Out No longer eligible b ased on patient's age to complete this topic Varicella Vaccines Aged Out No longer eligible based on patient's age to complete this topic Procedures Procedure Name Priority Date/Time Associated Diagnosis Comments 1 AL INTRAORAL PERIAPICAL FIRST RADIOGRAPHIC IMAGE Routine 09/22/2024 10:30 AM EDT 1 EXTRACTION, ERUPTED TOOTH OR EXPOSED ROOT (ELEVATION AND/OR FORCEPS REMOVAL) Routine 09/22/2024 10:30 AM EDT AL LIMITED ORAL EVALUATION PROBLEM FOCUSED Routine 09/22/2024 10:30 AM EDT PAP SMEAR Routine 03/23/2016 from Last 3 Months or Most Recently Relevant to Health Maintenance Results * Pap Smear (03/23/2016) Pap smear negative, abstracted Historical Provider HEALTH MAINTENANCE Final Result from Last 3 Months or Most Recently Relevant to Health Maintenance Insurance MEDICAID - [place] Care Teams Goat Farmer Relationship Specialty Start Date End Date Physician, No Pcp PCP - General 06/08/24
--- OUTSIDE RECORDS SUMMARY | 2024-11-01 11:07 | XMS_ITS | Encounter Summary ---
Author Organization [facility] Address [address] [place] [address] Care Team Providers Care Screen Stretcher Name Role Phone Pcp, [facility] Primary Care Provider [phone] Encounter Details Date Type Department Care Team Description 05/03/2018 Records Encounter Delivery Room [address] [place] [address] Provider, Not In System Social History Tobacco Use Types Packs/Day Years Used Date Smoking Tobacco: Never Smokeless Tobacco: Never Alcohol Use Standard Drinks/Week Comments No 0 (1 standard drink = 0.6 oz pur e alcohol) Comments Yes Sex and Gender Information Value Date Recorded Sex Assigned at Female 03/12/2018 9:46 PM EST Gender Identity Female 03/12/2018 9:46 PM EST Sexual Orientation Not on file Job Start Date Occupation Industry Not on file Not on file Not on file documented as of this encounter Functional Status Functional Status Response Date of Assess ment Pt deaf or have serious difficulty hearing? No 03/12/2018 Pt blind or have difficulty seeing, even with gl asses? No 03/12/2018 Do you have serious difficul ty walking or climbing stairs? (Retired) No 03/12/2018 Pt have difficulty dressing or bathing? (Retired ) No 03/12/2018 Pt have difficulty doing errands alone? (Retired ) No 03/12/2018 Cognitive Status Response Date of Assessm ent Pt have difficulty concentra ting, remembering, making decisions? (Retired) No 03/12/2018 documented as of this encounter Plan of Treatment Not on file documented as of this encounter Visit Diagnoses Not on filedocumented in this encounter Care Teams Screen Stretcher Relationship Specialty Start Date End Date Pcp, MD Justin [address] [place] [address] PCP - General Fisheries Director 01/21/17 documented as of this encounter
--- OUTSIDE RECORDS SUMMARY | 2024-11-01 11:07 | XMS_ITS ---
Author Name [facility] Organization Unknown History of Medication Use Medication Directions Dispensed Refills Start Date End Date Stat us No known medications No known medications active Problems Problem Status Onset Date Problem Type Date of Resoluti on Source Delivery by elective section active 2018-05-15 [address] [facility] Encounters Encounter Type Encounter Reason Primary Diagnosis Location Date Ambulatory [facility] 09/22/2024 Ambulatory Encounter for screening mammogram for malignant neoplasm of breast Encounter for screening mammogram for malignant neoplasm of breast [facility] 07/14/2024 Ambulatory Consult Other specified personal risk factors, not elsewhere classified [facility] 06/16/2024 Care Team Organization Name Specialty Phone Email Start Date End Da te [facility] 09/02/2024 [facility] PHYSICIAN Primary Care 07/01/2024 [facility] NO PHYSICIAN Primary Care 06/16/2024 [facility] 2023 [facility] 03/12/2024 [facility] 03/23/2022
--- OUTSIDE RECORDS SUMMARY | 2024-11-01 11:07 | XMS_ITS | Clinical Summary ---
Author Organization [facility] Address [address] [place] [id number] Care Team Providers Care Golf Course Ranger Name Role Phone Unavailable Primary Care Provider Unavailabl e Social History Tobacco Use Types Packs/Day Years Used Date Smoking Tobacco: Never Assessed Comments Unknown Sex and Gender Information Value Date Recorded Sex Assigned at Not on file Legal Sex Female 2:20 PM EDT Gender Identity Not on file Sexual Orientation Not on file Plan of Treatment Health Maintenance Due Date Last Done Comments Hepatitis C Virus Screening 1987 HIV Screening 10/10/2000 DTaP/Tdap/Td Vaccines (1 - Tdap) 10/10/2006 Hepatitis B Vaccines (1 of 3 - 19+ 3-dose series) 10/10/2006 COVID-19 Vaccine (2023-2 5 season) 2023 HPV Vaccines Aged Out No longer eligi ble based on patient's age to complete this topic Pneumococcal Vaccine: Pediat ariadna (0-5 Years) and At-Risk Patients (6 to 49 Years) Aged Out No longer eligible b ased on patient's age to complete this topic
--- NOTE | 2024-11-01 11:19 | PC.NURSE ---
pt comes to the ED with EMs after a syncopal episode at a training at [employer]. she finished a 2 mile run and felt dizzy, lightheaded, hot, FONG and passed out. she was sitting before LOC and did not fall. no HS. coworkers on scene. EMS reports that BP fluctuated between 90s and 110s systolic. They gave 500ml NS en route. In ED pt reports basically back to baseline. she denies HS, dizziness/lightheadedness. Aox4. EKG done, orthostatic vitals in progress. labs pending.
[2024-11-01 11:20] VITALS: BP 106/57; PULSE 65
[2024-11-01 11:22] VITALS: BP 102/64; PULSE 67
[2024-11-01 11:24] VITALS: BP 103/57; PULSE 68
[2024-11-01 11:34] LABS: MANUAL DIFF FLAG NO
[2024-11-01 11:35] LABS: Hematocrit 39.4 % (37.0-47.0); Hemoglobin 13.1 g/dl (12.0-16.0); Imm Gran Abs Auto 0.02 X10*3/uL (0.00-0.03); Imm Gran Pct Auto 0.2 % (0.0-0.4); Lymphocytes Absolute Auto 1.2 X10*3/uL (1.2-4.9); Mean Corpuscular HGB Conc 33.2 g/dl (31.0-35.0); Mean Corpuscular Hemoglobin 26.8 pg (27.0-33.0); Mean Corpuscular Volume 80.7 fL (80.0-98.0); NRBC Abs Auto 0.000 X10*3/uL (0.0-0.012); NRBC Pct Auto 0.0 /100WBC (0.0-0.2); Platelet Count 234 X10*3/uL (160-400); Red Blood Count 4.88 X10*6/uL (4.20-5.50); White Blood Count 9.1 X10*3/uL (4.8-10.8)
--- NOTE | 2024-11-01 11:38 | ED_ITS ---
HPI - Syncope General Chief Complaint: Syncope Stated Complaint: SYNCOPAL EPISODE, DIZZY, AFTER RUN Time Seen by Provider: 11/01/24 10:58 Source: patient, family and EMS Mode of arrival: EMS Limitations: no limitations History of Present Illness HPI narrative: Patient is a 39-year-old female who presents emergency department for evaluation. She was undergoing training for the [employer] at [employer] today, she did a 2 mile run outdoors. Towards the end she began feeling dizzy and lightheaded. She sat down was offered water and seems that she subsequently syncopized. EMS was called on their arrival she was somewhat hypotensive with BP 90's/50's, they administered 500 mL of normal saline and she reported symptomatic improvement. She does state that she recently was becoming more active going to the gym, but has not particularly exerted herself to this extent in quite some time. She also did not have anything to eat this morning prior to her run, last ate yesterday evening. Did not have much to drink this morning prior to the run either. She denies any recent issues with dizziness or lightheadedness during exertion at the gym, shortness of breath, chest pain, headache, neck pain, palpitations, abdominal pain. Denies personal history of VTE/malignancy, no use of OCP, no recent prolonged immobilization. Denies family history of sudden cardiac at a young age or known coagulation disorders. Related Data Allergies Allergy/AdvReac Type Severity Reaction Status Date / Time No Known Allergies Allergy Verified 11/01/24 10:41 Review of Systems 2 Review of Systems: Yes all other systems are reviewed and are negative [facility] Past Medical History Attestation statement: The following information was validated with the patient. Source: old records reviewed Social History Social History Smoked in Last 30 Days: No Use of substances other than those prescribed or required for medical reasons: No Advance Directives: No Advance Directives Information Provided: No Physical Exam 2 Vital Signs: Vital Signs: Last Vital Signs Temp 97.8 F 11/01/24 13:53 Pulse 68 11/01/24 13:53 Resp 16 11/01/24 13:53 BP 103/57 L 11/01/24 13:53 Pulse Ox 99 11/01/24 13:53 O2 Del Method Room Air 11/01/24 13:53 BMI result Body Mass Index 36.4 Appearance: Alert.?Oriented to person, place and time. No acute distress.?Normal affect. Eyes: Pupils equal, round and reactive to light.? EOMI. No nystagmus. ENT: Pharynx normal.?? Neck: Normal inspection.? Neck supple.??Full range of motion. No rigidity. CVS: Heart sounds normal. Normal heart rate and rhythm.? Pulses normal.?? Respiratory: No respiratory distress.? Lung sounds clear to auscultation bilaterally?? Abdomen: Soft and non-tender. Normoactive bowel sounds. No pulsatile mass.?? Skin: Skin warm and dry.? Normal skin color.? ? Extremities: No lower extremity edema.? No calf ttp? Neuro: Moves all extremities spontaneously. Sensation intact bilaterally. CN II- XII intact. No focal neuro deficits. Ambulates with normal steady gait. Medications Administered Discontinued Medications Generic Name Dose Route Start Last Admin Trade Name Freq PRN Reason Stop Dose Admin Sodium Chloride 1,000 mls @ 999 mls/hr 11/01/24 11:00 11/01/24 13:02 Ns IV 11/01/24 12:00 Infused .Q1H1M [place] Infusion Medical Decision Making Medical Decision Making [facility] Narrative: Patient is a 39-year-old female with no reported past medical history who presents emergency department for evaluation of dizziness and lightheadedness after a 2 mi run outdoors today with subsequent syncopal episode as per HPI. No reported head strike from the incident. Denies associated chest pain, shortness of breath, palpitations lower suspicion for aortic stenosis, ACS, pericardial effusion, aortic dissection. PERC negative lower suspicion for pulmonary embolism No focal neurological deficits, diplopia, or associated headache to suggest SAH, CVA, basilar insufficiency. No history of coronary artery disease, family history of sudden cardiac . EKG without acute ischemic findings or concerning arrhythmia or AV block. No history of seizure disorder no bladder bowel dysfunction. On arrival she is not orthostatic however she did receive 500 mL of normal saline prior to arrival. She has symptomatic improvement at this time. I suspect this was a syncope due to prior orthostatic hypotension in the setting of decreased oral intake, and/or vasovagal syncope. Will obtain CBC to evaluate for leukocytosis/ anemia, CMP and lipase to evaluate for abnormal electrolytes /abnormal renal function/ abnormal hepatic/biliary function, EKG and troponin to evaluate for ischemia/ACS, and hCG. Orthostatic vital signs are negative on arrival to the ED. if she is otherwise asymptomatic, with unremarkable workup I anticipate that she will otherwise be discharged home with strict return precautions and outpatient follow-up with PCP. High sensitive troponin 28.3., no chest pain, no shortness of breath, dizziness or lightheadedness has remained asymptomatic while in the emergency department, ECG is nonischemic, do not suspect ACS but rather finding from insertional running today. Reviewed this with my attending Dr. Vallejo, who agrees, would not advised repeat troponin at this time. Differential Diagnosis Differential Diagnoses: The differential diagnosis associated with the presentation includes (See narrative above) Admission/Observation Consideration of admission/observation: Escalation of care including admission/observation considered (See narrative above) Lab Data MDM Lab Attestation statement: I reviewed the patient's lab results. CBC is without leukocytosis, anemia or thrombocytopenia. No significant electrolyte derangement. No EMANUEL. LFTs overall unremarkable. TSH is normal. HCG is negative. High sensitive troponin 28.3. Without evidence of infection or microscopic hematuria, it is however other concentrated likely in the setting of dehydration. 11/01/24 11:30 11/01/24 11:30 Labs: Lab Results 11/01/24 11/01/24 Range/Units 11:30 11:56 WBC 9.1 (4.8-10.8) X10*3/uL RBC 4.88 (4.20-5.50) X10*6/uL Hgb 13.1 (12.0-16.0) g/dl Hct 39.4 (37.0-47.0) % MCV 80.7 (80.0-98.0) fL MCH 26.8 L (27.0-33.0) pg MCHC 33.2 (31.0-35.0) g/dl RDW 12.9 (11.0-16.0) % Plt Count 234 (160-400) X10*3/uL MPV 10.8 (9.4-12.3) fL Immature Gran % (Auto) 0.2 (0.0-0.4) % Neut % (Auto) 83.2 H (45-73) % Lymph % (Auto) 13.7 L (20-40) % Powell % (Auto) 2.5 (2-11) % Eos % (Auto) 0.1 (0-4) % Baso % (Auto) 0.3 (0-2) % Lymph # (Auto) 1.2 (1.2-4.9) X10*3/uL Powell # (Auto) 0.2 (0.1-1.2) X10*3/uL Eos # (Auto) 0.0 (0.0-0.4) X10*3/uL Baso # (Auto) 0.0 (0.0-0.2) X10*3/uL Abs Immat Gran (auto) 0.02 (0.00-0.03) X10*3/uL Absolute Neuts (auto) 7.6 (2.0-8.3) x10*3/uL Absolute Nucleated RBC 0.000 (0.0-0.012) X10*3/uL Nucleated RBC % (auto) 0.0 (0.0-0.2) /100WBC Sodium 142 (135-145) mmol/L Potassium 4.5 (3.3-5.1) mmol/L Chloride 111 H (96-108) mmol/L Carbon Dioxide 23 (22-29) mmol/L Anion Gap 13 (12-20) BUN 20 H (9-16) mg/dL Creatinine 1.02 (0.5-1.4) mg/dL Estim Creat Clear Calc 94.3 Estimated GFR > 60 Random Glucose 91 (60-115) mg/dL Calcium 9.6 (8.4-10.2) mg/dL Magnesium 1.9 (1.6-2.6) mg/dL Total Bilirubin 0.6 (0.0-1.0) mg/dL AST 27 (5-31) U/L ALT 25 (0-31) U/L Alkaline Phosphatase 91 (39-117) U/L Total Creatine Kinase 543 H (26-140) U/L Troponin I High Sens 28.3 H (<3.5-17.0) ng/L Total Protein 7.3 (6.5-8.0) g/dL Albumin 4.2 (3.5-5.0) g/dL TSH 1.04 (0.32-4.0) uIU/mL Beta HCG, Quant < 2 mIU/mL Urine Color Yellow Urine Appearance Clear Urine pH 5.5 (5.0-9.0) Ur Specific [place] 1.025 (1.005-1.025) Urine Protein 30 (1+) H (Neg-Trace) mg/dL Urine Glucose (UA) Negative (Negative) mg/dL Urine Ketones 15 (Negative) mg/dL Urine Blood Negative (Negative) Urine Nitrite Negative (Negative) Ur Leukocyte Esterase Negative (Negative) Urine RBC 0-2 (0-2) /HPF Urine WBC 0-5 (0-5) /HPF Ur Squamous Epith Cells 0-2 (0-2) /HPF Urine Bacteria None Seen (None Seen) Hyaline Casts 0-2 (0-2) /LPF Influenza Type A (PCR) NEGATIVE (Negative) Influenza Type B (PCR) NEGATIVE (Negative) RSV RNA Qual (PCR) NEGATIVE (Negative) SARS-CoV-2 RNA (RT-PCR) NEGATIVE (Negative) Independent Interpretation I performed an independent interpretation of an: EKG (Normal sinus rhythm with ventricular rate of 73, BOONE, QTC 414, no ST-elevation) Independent Historian Clinical information obtained from an independent historian. History obtained from or confirmed by: EMS Tests considered The following testing was considered but not selected: See narrative above Discharge Plan Discharge Clinical Impression: Syncope Qualifiers: Encounter type: initial encounter Patient Disposition: Home, Self-Care Instructions: Syncope (ED) Additional Instructions: As discussed, it is important that if you are going to be exerting herself such as rigid today with the extensive running in the heat you should be well hydrated, consume some degree of caloric intake prior to, and be sure that you are pacing yourself. It is also recommended that you have more routine similar exercise before straining herself for such exertion as you did today. Follow-up with primary care provider within 2-3 days. If you continue to have symptoms of dizziness, lightheadedness while exerting herself such as starting running or any additional symptoms such as chest pain, shortness of breath, palpitations, numbness or tingling of your extremities or anything else abnormal you should seek re-evaluation. Referrals: Physician,None [Primary Care Provider, Medical] Interventions: ED Discharge Assessment Last Done: 11/01/24 13:53 Discharge Date/Time: 11/01/24 13:53 Print Language: Bulgarian
[2024-11-01 11:56] LABS: Alanine Aminotransferase 25 U/L (0-31); Albumin Level 4.2 g/dL (3.5-5.0); Alkaline Phosphatase 91 U/L (39-117); Anion Gap 13 (12-20); Aspartate Amino Transferase 27 U/L (5-31); Blood Urea Nitrogen 20 mg/dL (9-16); Calcium 9.6 mg/dL (8.4-10.2); Carbon Dioxide 23 mmol/L (22-29); Chloride 111 mmol/L (96-108); Creatinine Clr Calc Pharmacy 94.3; Estimated Glomerular Filt Rate > 60; Magnesium 1.9 mg/dL (1.6-2.6); Potassium 4.5 mmol/L (3.3-5.1); Sodium 142 mmol/L (135-145); Total Protein 7.3 g/dL (6.5-8.0)
[2024-11-01 11:57] LABS: Troponin-I High Sensitivity 28.3 ng/L (<3.5-17.0)
[2024-11-01 12:04] LABS: Appearance Urine Clear; Glucose Urine UA Negative (Negative); PH 5.5 (5.0-9.0); Specific Gravity - Urine 1.025 (1.005-1.025); UMIC TRIGGER UACC YES
[2024-11-01 12:13] LABS: Resp Syncy Virus RNA Qual PCR NEGATIVE (Negative); SARS COV2 PCR INHOUSE NEGATIVE (Negative)
[2024-11-01 13:53] VITALS: BP 103/57; PULSE 68; RESP 16; TEMP 36.6; O2SAT 99
== END 2024-11-01 13:53 | disposition home or self-care (01) ==
PROVIDERS: Nurse Practitioner Family; Emergency Provider Emergency Medicine
DX: R55 Syncope and collapse (principal); R42 Dizziness and giddiness; R10.2 Pelvic and perineal pain; Z03.818 Encounter for observation for suspected exposure to other biological agents ruled out; Z79.899 Other long term (current) drug therapy
CPT/HCPCS: 36415; 80053; 81001; 81003; 82550; 83735; 84443; 84484; 84702; 85025; 87637; 93005; 96360; 99284; 99285

== ENCOUNTER → 2024-11-01 10:58 | Outpatient (BNV) | payer OTHER, SELFPAY | PROVIDERS: Emergency Provider Emergency Medicine; Visit Provider Internal Medicine | DX: R55 Syncope and collapse (principal) | CPT/HCPCS: 93010 ==